=== PATIENT | male | born 1960 | race Asian ===

== ENCOUNTER 2022-02-09 08:15 | Day surgery (SDC) | payer MEDICARE, OTHER ==
[2022-02-08 10:21] LABS: COVID AG,FIA SOURCE NASAL SWAB
[~2022-02-09] VITALS: Ht 162.6 cm; Wt 54.5 kg
[~2022-02-09 08:15] MED LIST: CYCLOPENTOLATE HCL 1% 2 ML OPHTHALMIC SOLUTION ONE; KETOROLAC TROMETHAMINE 0.5% 5 ML OPHTHALMIC SOLUTION ONE; PHENYLEPHRINE HCL 2.5% 2 ML OPHTHALMIC SOLUTION ONE; RINGERS SOLUTION,LACTATED 500 ML IV ONE; TROPICAMIDE 1% 2 ML OPHTHALMIC SOLUTION ONE
[2022-02-09] MEDS ORDERED: MethylPREDNISolone SOD SUCC 40 MG/ML VIAL IVP ONE (08:16)
[2022-02-09] MEDS ORDERED: BALANCED SALT 15 ML OPHTHALMIC IRRIG.SOLN IO ONE (08:16)
[2022-02-09] MEDS ORDERED: HYALURONATE SOD/CHONDROITIN SOD 0.5 ML VIAL IO ONE (08:16)
[2022-02-09] MEDS ORDERED: TETRACAINE HCL/PF 0.5% 4 ML OPHTHALMIC SOLUTION OD ONE (08:16)
[2022-02-09] MEDS ORDERED: ACETYLCHOLINE CHLORIDE 1 EA INTRAOCULAR SOLUTION KIT IO ONE (08:16)
[2022-02-09] MEDS ORDERED: LIDOCAINE/PF 1% 2 ML VIAL CAUDAL ONE (08:16)
[2022-02-09] MEDS ORDERED: NEOMYCIN/POLYMYXIN B/DEXAMETH 3.5 GM OPHTHALMIC OINTMENT OD ONE (08:16)
[2022-02-09] MEDS ORDERED: POVIDONE-IODINE 5% 30 ML OPHTHALMIC SOLUTION OD ONE (08:16)
[2022-02-09] MEDS ORDERED: HYALURONATE SOD 8.5MG/0.85ML 10 MG/ML SYRINGE IO ONE (08:16)
[2022-02-09] MEDS ORDERED: VANCOMYCIN HCL 500 MG/VIAL IRRIG ONE (08:16)
[2022-02-09] MEDS ORDERED: EPINEPHrine 1:1,000 [1 MG/ML] VIAL ET ONE (08:16)
[2022-02-09] MEDS ORDERED: CHONDR SULF A SOD/HYALURONATE 1.05 ML KIT IO ONE (08:16)
[2022-02-09] MEDS: TROPICAMIDE 1% 2 ML OPHTHALMIC SOLUTION OS SCH ×3 (08:40→08:55)
[2022-02-09] MEDS: KETOROLAC TROMETHAMINE 0.5% 5 ML OPHTHALMIC SOLUTION OS SCH ×3 (08:40→08:54)
[2022-02-09] MEDS: CYCLOPENTOLATE HCL 1% 2 ML OPHTHALMIC SOLUTION OS SCH ×3 (08:40→08:55)
[2022-02-09] MEDS: PHENYLEPHRINE HCL 2.5% 2 ML OPHTHALMIC SOLUTION OS SCH ×3 (08:41→08:55)
[2022-02-09] MEDS ORDERED: MIDAZOLAM HCL 2 MG/2 ML VIAL IVP ONE (12:00)
[2022-02-09] MEDS ORDERED: FentaNYL CITRATE PF 100 MCG/2 ML VIAL IVP ONE (12:00)
[2022-02-09] MEDS ORDERED: RINGERS SOLUTION,LACTATED 0 ML IV ONE (12:22)
[2022-02-09] MEDS ORDERED: RINGERS SOLUTION,LACTATED 500 ML IV ONE (12:23)
== END 2022-02-09 13:40 | disposition home or self-care (01) ==
LOC: SURGERY 08:15
PROVIDERS: ATTEND Ophthalmology
DX: H25.89 Other age-related cataract (principal); J44.9 Chronic obstructive pulmonary disease, unspecified; E78.00 Pure hypercholesterolemia, unspecified; F17.210 Nicotine dependence, cigarettes, uncomplicated; Z79.899 Other long term (current) drug therapy; Z20.822 Contact with and (suspected) exposure to COVID-19
CPT/HCPCS: 93005; 87426; 66982; C9803; J0171; J3010; J3490; J2250; J2920; J3370; Q9967; J7120; V2632